=== PATIENT | male | born 1975 ===

== ENCOUNTER 2017-12-31 10:48 | Emergency (ER) | payer BC ==
[2017-12-31 11:28] VITALS: BP 148/102
--- NOTE | 2017-12-31 11:28 | UC ---
Hand/Wrist HPI - HPI Summary HPI Summary: 42 yo male presents with right hand pain for the last 2 weeks. He tells me that he fell backwards out of the back of a pickup truck and landed on his right hand. Had immediate pain followed by swelling. He has been icing the area, taking ibuprofen, and wearing a wrist/hand brace, but pain is persisting. Denies numbness or tingling. He is right handed - History Of Current Complaint Stated Complaint: R HAND/WRIST INJURY Time Seen by Provider: 12/31/17 11:27 Hx Obtained From: Patient Onset/Duration: Sudden Onset Severity Initially: Severe Severity Currently: Moderate Pain Intensity: 6 Pain Scale Used: 0-10 Numeric - Allergies/Home Medications Allergies/Adverse Reactions: Allergies Allergy/AdvReac Type Severity Reaction Status Date / Time peanuts Allergy Nausea And Uncoded 12/31/17 11:28 Vomiting Home Medications: Home Medications Ibuprofen TAB* [Advil TAB*] 800 mg PO Q6H PRN 12/31/17 [History Confirmed ] Naproxen Sodium [Aleve] 220 mg PO BID PRN 12/31/17 [History Confirmed 12/31/17] Omeprazole CAP* [Prilosec CAP* 20 MG] 20 mg PO DAILY 12/31/17 [History Confirmed 12/31/17] PMH/Surg Hx/FS Hx/Imm Hx GI/ History: Gastroesophageal Reflux - Surgical History Surgical History: None - Family History Known Family History: Positive: None - Social History Occupation: Employed Full-time Lives: With Family Alcohol Use: Occasionally Substance Use Type: None Smoking Status (MU): Never Smoked Tobacco Review of Systems Constitutional: Negative Skin: Negative Respiratory: Negative Cardiovascular: Negative Neurovascular: Negative Musculoskeletal: Other: - Right hand pain Neurological: Negative Psychological: Negative All Other Systems Reviewed And Are Negative: Yes Physical Exam - Summary Physical Exam Summary: GENERAL: NAD. WDWN. No pain distress. SKIN: No rashes, sores, lesions, or open wounds. CHEST: No accessory muscle use. Breathing comfortably and in no distress. CV: Pulses intact radial and ulnar. Cap refill <2seconds MSK: RIGHT HAND: Pain and bony deformity at 5th MT. 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 Wrist FROM. No snuffbox tenderness. NEURO: Alert. Sensations intact hand and all fingers. PSYCH: Age appropriate behavior. Triage Information Reviewed: Yes Vital Signs: Vital Signs: Temp Pulse Resp BP Pulse Ox 97.7 F 66 16 148/102 98 12/31/17 11:24 12/31/17 11:24 12/31/17 11:24 12/31/17 11:24 12/31/17 11:24 Vital Signs Reviewed: Yes Hand/Wrist Course/Dx - Course Course Of Treatment: XR: IMPRESSION: COMMINUTED, GROSSLY NONDISPLACED INTRA- ARTICULAR FRACTURE BASE OF THE FIFTH METACARPAL. I discussed with the pt that splinting with Orthoglass is indicated, but since the injury was 2 weeks ago - he declined splinting and prefers to use his brace that he has been using. He was agreeable to following up with Orhtopedics, which I strongly encouraged. - Differential Dx/Diagnosis Provider Diagnoses: COMMINUTED NONDISPLACED INTRA-ARTICULAR FRACTURE BASE OF THE FIFTH METACARPAL RIGHT Discharge - Sign-Out/Discharge Documenting (check all that apply): Patient Departure All imaging exams completed and their final reports reviewed: Yes - Discharge Plan Condition: Stable Disposition: HOME Patient Education Materials: Hand Fracture (ED) Referrals: No Primary Care Phys,NOPCP [Primary Care Provider] - Kieran Hsu MD [Medical Doctor] - As Soon As Possible Additional Instructions: If you develop a fever, shortness of breath, chest pain, new or worsening symptoms - please call your PCP or go to the ED. Your blood pressure was high at todays visit. Please see your primary provider within 4 weeks for recheck and re-evaluation. 1) Please call Orthopedics at the number below to schedule a follow up appointment as soon as possible - Billing Disposition and Condition Condition: STABLE Disposition: Home
--- NOTE | 2017-12-31 12:06 | RAD ---
INDICATION: Right hand injury. TECHNIQUE: 4 views of the right hand were obtained. FINDINGS: There appears to be a comminuted grossly nondisplaced fracture at the base of the fifth metacarpal which appears to extend to the proximal articular margin. IMPRESSION: COMMINUTED, GROSSLY NONDISPLACED INTRA-ARTICULAR FRACTURE BASE OF THE FIFTH METACARPAL.
== END 2017-12-31 12:24 | disposition home or self-care (01) ==
LOC: UCEAST 10:48
DX: S62.346A Nondisplaced fracture of base of fifth metacarpal bone, right hand, initial encounter for closed fracture (principal); W17.89XA Other fall from one level to another, initial encounter; Y92.9 Unspecified place or not applicable
CPT/HCPCS: 99211; G0463

== ENCOUNTER 2018-04-15 16:05 | Emergency (ER) | payer BC ==
[2018-04-15 16:10] VITALS: BP 123/72
== END 2018-04-15 20:55 | disposition left against medical advice (07) ==
LOC: ED 16:05
DX: R22.2 Localized swelling, mass and lump, trunk (principal); Z53.21 Procedure and treatment not carried out due to patient leaving prior to being seen by health care provider